=== PATIENT | female | born 1985 | race Hispanic/Latino ===

== ENCOUNTER 2023-09-18 14:03 | Emergency (ER) | payer OTHER ==
[~2023-09-18] VITALS: Ht 154.9 cm; Wt 76.7 kg
[2023-09-18 14:48] LABS: RAPID GROUP A STREP negative (NEGATIVE)
[2023-09-18 14:57] LABS: INFLUENZA TYPE A Negative For Type A (NEGATIVE); INFLUENZA TYPE B Negative For Type B (NEGATIVE)
[2023-09-18 15:01] LABS: COVID19 (SARS ANTIGEN RAPID) POSITIVE FOR SARS AG (NEGATIVE)
[2023-09-18] MEDS ORDERED: ALBU18HF7 IH (15:07)
[2023-09-18] MEDS ORDERED: MOLN200C PO (15:07)
[2023-09-18] MEDS ORDERED: BENZ-39 PO (15:07)
[2023-09-18] MEDS ORDERED: METH4TAB3 PO (15:07)
[2023-09-18 15:11] VITALS: BP 116/58; PULSE 74; RESP 16; O2SAT 97
== END 2023-09-18 15:13 | disposition home or self-care (01) ==
LOC: EDH 14:03
DX: U07.1 COVID-19 (principal); R05.9 Cough, unspecified; Z88.0 Allergy status to penicillin
CPT/HCPCS: 87426; 87804; 87880